=== PATIENT | male | born 1960 ===

== ENCOUNTER 2018-01-12 07:00 | Inpatient (IN) | payer OTHER ==
[~2018-01-12] VITALS: Ht 170.2 cm; Wt 55.3 kg
[2018-01-12] VITALS (8 sets, daily range): BP systolic 107–130; BP diastolic 69–87
[~2018-01-12 07:00] MED LIST: CEFAZOLIN SOD IVPB ONE; NS IVPB ONE
[2018-01-12] MEDS ORDERED: Dexamethasone 20mg/5ml IVP ONE (07:45)
[2018-01-12] MEDS ORDERED: PERCOCET 7.5-31 EACH ORAL (08:04)
[2018-01-12] MEDS ORDERED: ZANTAC150 MG ORAL (08:05)
[2018-01-12] MEDS ORDERED: Propofol 1,000mg/ 100ml btl IV ONE (09:00)
[2018-01-12] MEDS ORDERED: LR 1000ml 1,000 ML IVLG SCH (10:17)
--- NOTE | 2018-01-12 10:17 | Anethesia Preoperative Eval ---
Anesthesia Pre-op PMH/ROS General Date of Evaluation: Jan 12, 2018 Anesthesiologist: Nahomi Mallampati Score Class I : Soft palate, uvula, fauces, pillars visible Class II: Soft palate, uvula, fauces visible Class III: Soft palate, base of uvula visible Class IV: Only hard plate visible Allergies: Coded Allergies: No Known Allergies (Unverified , 01/11/18) Anesthesia Pre-op Phys. Exam Physician Exam Last Vital Signs Date Time Temp Pulse Resp B/P (MAP) Pulse Ox O2 Delivery O2 Flow Rate FiO2 01/12/18 08:31 97.8 73 18 113/78 100 Room Air 97.8 Ike Comer MD Jan 12, 2018 10:16
--- NOTE | 2018-01-12 10:27 | Pre-Procedure Note/Attestation ---
Pre-Procedure Note/Attestation Complete Prior to Procedure Planned Procedure: not applicable Procedure Narrative: ACDF C5-6, C6-7 Anterior Plate SSEP, EMG Osteopromotive material C5-6, C6-7 with allograft High Power Magnification Xray Attestation I attest that I discussed the nature of the procedure; its benefits; risks and complications; and alternatives (and the risks and benefits of such alternatives ), prior to the procedure, with the patient (or the patient's legal account service representative). I attest that, if there was a reasonable possibility of needing a blood transfusion, the patient (or the patient's legal account service representative) was given the [place] [employer] [facility] [employer] [facility] standardized written summary, pursuant to the [facility] [employer] [place] Blood Safety Act ([place] Health and Safety Code # 1645, as amended). I attest that I re-evaluated the patient just prior to the surgery and that there has been no change in the patient's H&P, except as documented below: MARY RAM Jan 12, 2018 10:27
[2018-01-12] MEDS ORDERED: Labetalol 5mg/ml 20ml vial IV PRN (10:30)
[2018-01-12] MEDS ORDERED: Acetaminophen (Non formulary) 100 ML IV ONE (10:30)
[2018-01-12] MEDS ORDERED: fentaNYL 100 mcg/2 mL IV PRN (10:30)
[2018-01-12] MEDS ORDERED: Hydromorphone 0.5mg/0.5ml inj IVP PRN ×2 (10:30→16:30)
[2018-01-12] MEDS ORDERED: LORazepam Inj 2mg/ml 1ml IV PRN (10:30)
[2018-01-12] MEDS ORDERED: Midazolam 2mg/2ml Inj IVP PRN (10:30)
[2018-01-12] MEDS ORDERED: Ketorolac 30mg Inj IV PRN ×2 (10:30)
[2018-01-12] MEDS ORDERED: Metoclopramide 10mg/2ml Inj IVP PRN (10:30)
[2018-01-12] MEDS ORDERED: oxyCODONE HCL/Acetaminophen 5/325mg ORAL PRN (10:30)
[2018-01-12] MEDS ORDERED: Norco 5mg/325mg tab ORAL PRN (10:30)
[2018-01-12] MEDS ORDERED: HYDROcodone/Acetamin 7.5/325 tab ORAL PRN (10:30)
[2018-01-12] MEDS ORDERED: Atropine Inj 1mg/10ml Syr IV PRN (10:30)
[2018-01-12] MEDS ORDERED: DiphenhydrAMINE 50mg/ml Inj IVP PRN (10:30)
[2018-01-12] MEDS ORDERED: Zemuron 50mg/5ml Inj IV ONE (10:37)
[2018-01-12] MEDS ORDERED: Thrombin 5000 units TOPIC ONE (10:42)
[2018-01-12] MEDS ORDERED: Bacitracin 50000 Units Vial ONE (10:43)
[2018-01-12] MEDS ORDERED: Lidocaine 1% Plain 30 ml INJ ONE ×2 (10:47→13:19)
[2018-01-12] MEDS ORDERED: Lidocaine 1% MPF 10mg/ml 5ml ONE (10:49)
[2018-01-12] MEDS ORDERED: Sodium Chloride 10ml vial INJ ONE (10:49)
[2018-01-12] MEDS ORDERED: fentaNYL 100 mcg/2 mL IV ONE ×2 (10:50→12:30)
[2018-01-12] MEDS ORDERED: Neostigmine 1mg/ml 10ml Inj ONE (11:00)
[2018-01-12] MEDS ORDERED: Glycopyrrolate 0.2mg/ml 1ml Vial ONE ×2 (11:00→13:46)
[2018-01-12] MEDS ORDERED: Sterile Water Irrig 1000ml IRRIG ONE (11:00)
[2018-01-12] MEDS ORDERED: NS Irrig 1000ml ONE (11:00)
[2018-01-12] MEDS ORDERED: LR 1000ml ONE (11:00)
--- NOTE | 2018-01-12 11:08 | Anethesia Preoperative Eval ---
Anesthesia Pre-op PMH/ROS General Date of Evaluation: Jan 12, 2018 Time of Evaluation: 11:16 Anesthesiologist: Dandy ASA Score: ASA 2 Mallampati Score Class I : Soft palate, uvula, fauces, pillars visible Class II: Soft palate, uvula, fauces visible Class III: Soft palate, base of uvula visible Class IV: Only hard plate visible Mallampati Classification: Class I Surgeon: Leanna Diagnosis: Neck Pain Surgical Procedure: ACDF C5-6, C6-7 Anesthesia History: none Family History: no anesthesia problems Allergies: Coded Allergies: No Known Allergies (Unverified , 01/11/18) Medications: see eMAR Past Medical History Gastrointestinal/Genitourinary: Reports: GERD Anesthesia Pre-op Phys. Exam Physician Exam Last Vital Signs Date Time Temp Pulse Resp B/P (MAP) Pulse Ox O2 Delivery O2 Flow Rate FiO2 01/12/18 08:31 97.8 73 18 113/78 100 Room Air 97.8 Constitutional: NAD Neurologic: CN 2-12 intact Cardiovascular: RRR Respiratory: CTA Gastrointestinal: S/NT/ND Airway Exam Mallampati Score: Class I MO: full ROM: limited Teeth: missing, intact Dentures: upper Anesthesia Pre-op A/P Risk Assessment & Plan Assessment: ASA 2 Plan: GA, BIS, GlideScope Go Status Change Before Surgery: No Pre-Antibiotics Dru Grams Ancef IV Given Within 1 Hr of Incision: Yes Time Given: 11:41 Ike Comer MD Jan 12, 2018 11:08
--- NOTE | 2018-01-12 11:09 | Immediate Post-Op Evaluation ---
Immediate Post-Op Evalulation Immediate Post-Op Evalulation Procedure: ACDF C5-6, C6-7 Date of Evaluation: Jan 12, 2018 Time of Evaluation: 14:29 IV Fluids: 800 LR Blood Products: 0 Estimated Blood Loss: 25 Urinary Output: 0 Blood Pressure Systolic: 130 Blood Pressure Diastolic: 87 Pulse Rate: 80 Respiratory Rate: 16 O2 Sat by Pulse Oximetry: 100 Temperature (Fahrenheit): 97.3 Pain Score (1-10): 3 Nausea: No Vomiting: No Complications 0 Patient Status: awake, reacts, patent, extubated, none Hydration Status: adequate Dru Grams Ancef IV Given Within 1 Hr of Incision: Yes Time Given: 11:41 Ike Comer MD Jan 12, 2018 11:09
--- NOTE | 2018-01-12 12:02 | Diagnostic Imaging Report ---
Indication: Cough Technique: One view of the chest Comparison: none Findings: Lungs and pleural spaces are clear. The heart size is normal Impression: Negative
--- NOTE | 2018-01-12 14:07 | Brief Operative Note ---
Immediate Post Operative Note Operative Note Chief Complaint: Neck pain radiculopathy Pre-op Diagnosis: post trauma neck pain radiculopathy Procedure: C5-6, C6-7 ACDF, Interbody graft, osteopromotive material fusion with autograft , xray, SSEP EMG, Anterior plate fixation, correction deformity Spinal cord / nerve root decompression Post-op Diagnosis: same as pre-op Findings: consistent w/pre-op dx studies Surgeon: Leanna MAS Yoke Presser: Mimi BENSON Anesthesiologist: Nahomi MAS Anesthesia: general Specimen: yes Complications: none Condition: stable Fluids: anesthesia Estimated Blood Loss: minimal Drains: none Implant(s) used?: Yes MARY RAM Jan 12, 2018 14:07
--- NOTE | 2018-01-12 14:32 | Diagnostic Imaging Report ---
Indication: Pain, intraoperative, pain in neck and bilateral upper extremities left upper extremity greater than right upper extremity Total fluoroscopy time 12.7 second. Total dose area product 1.8 dGycm2 Technique: Intraoperative images Comparison: none Findings: Intraoperative images demonstrate surgical tool projected level of the C5-6 disc. Subsequent images document anterior fusion of C5 through C7 with disc spacers at C5-6 and C6-7 Impression: Intraoperative imaging, as described
[2018-01-12] MEDS ORDERED: oxyCODONE 5mg IR tab ORAL PRN (16:30)
[2018-01-12] MEDS ORDERED: Chloraseptic Spray 20mL Bottle ORAL ONE (17:00)
[2018-01-12] MEDS ORDERED: Chloraseptic Spray 20mL Bottle ORAL PRN (17:30)
--- NOTE | 2018-01-12 18:00 | Operative Note - Dictated ---
DATE OF OPERATION: 01/12/2018 ADMITTING/PREOPERATIVE DIAGNOSIS: Posttraumatic cervical neck pain with radiculopathy. POSTOPERATIVE DIAGNOSIS: Posttraumatic cervical neck pain with radiculopathy. SURGEON: Rancho Ram, PhD., M.D. RECRUITING MANAGER: KELLEY Levine. ANESTHESIA: General with intubation, Dr. Dorman. BLOOD LOSS: Minimal. OPERATIVE PROCEDURE: ACDF C5-C6, C6-C7. Anterior internal fixation C5, C6 and C7. Fusion with osteopromotive material in combination with autograft C5-C6, C6-C7. Correction deformity, spinal cord decompression, nerve root decompression, high-powered microscopic dissection, SSEP/EMG, and intraoperative x-rays interpreted by surgeon. DESCRIPTION OF PROCEDURE: The patient was brought to the operating room and in the supine position, general anesthesia intubation was induced. IV antibiotics, IV Decadron administered prior to incision time. After appropriate position, a cross-table radiograph obtained under sterile conditions demonstrating the correct level for incision placement. Neck was marked. Neck was sterilely prepped and draped free in usual sterile fashion. Transverse left incision at the appropriate interval was sharply placed through dermis and epidermis. Electrocautery dissection was carried through subcutaneous tissue to the level of the platysmas muscle that was identified, isolated and transected in line with the incision. Blunt dissection was carried medial to the left sternocleidomastoid muscle and medial to the carotid sheath through the deep cervical pretracheal fascia to the midline between the right and left longus colli muscles. Large anterior osteophytes identified. A spinal needle that was bent at 90-degree angle so as to avoid penetration into the space greater than 3 mm was placed in the disc space under direct observation, sterile conditions and a cross-table image was obtained under sterile conditions demonstrating the correct level for the dissection. Level was marked. Needle removed. Longus colli muscles elevated to maximum 3 mm subperiosteally from the medial lateral extent. C6-C7: Large anterior osteophyte after retractor placement was resected with Midas James bur dissection, high-power magnification. Diskectomy was performed with essentially intermittent bone on bone. Decompression was undertaken to the posterior longitudinal ligament. Interpositional grafting with a lordotic titanium cage containing Bio-4 with autograft was tamped into position. Excellent alignment and positioning. Confirmed with fluoroscopy. Retractors were placed at the C5-C6 interval. C5-C6: Large anterior osteophyte was resected under high-power magnification with Midas James bur dissection. Bleeding bone was cauterized with application of sterile wax. Diskectomy was performed to the posterior longitudinal ligament. Posterior longitudinal ligament resected with decompression of spinal cord and nerve roots. No dural tears or leaks occurred anytime during the procedure. SSEP monitoring and EMG's remained stable at all times. Interpositional grafting with the appropriate lordotic titanium graft containing autograft bone and bile-4 osteopromotive material was tamped into position. Excellent alignment. All traction on the neck (10 pounds) was removed. Anterior internal fixation in compressive fashion was undertaken C5-C6-C7. Purchase excellent. Screws locked into position. Fluoroscopic imaging, excellent alignment and positioning. Wound was irrigated with antibiotic-containing saline. Expiration revealed no obvious excoriation or laceration of vital structures. FloSeal applied. Reapproximation of the platysmas muscle. With a running subcuticular suture of the dermis and epidermis follows transverse surgical strips and sterile bandage. It was maintained in place with tape. The patient was awakened and extubated in the operating room, and transported to postoperative recovery in good stable condition. Rancho Ram M.D. DR: SUKHWINDER JOB#: [id number] CC:
[2018-01-12] MEDS: D5 1/2NS 1,000 ML IV SCH (18:12)
[2018-01-12] MEDS: ceFAZolin sod 1 GM in D5W 110 ML IV SCH (18:30)
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
[2018-01-12] MEDS: Hydromorphone 0.5mg/0.5ml inj SUBQ PRN (23:43)
[2018-01-13 00:28] VITALS: BP 113/65
[2018-01-13] MEDS ORDERED: Hydromorphone 0.5mg/0.5ml inj IVP PRN (00:30)
[2018-01-13] MEDS ORDERED: Hydromorphone 0.5mg/0.5ml inj SUBQ PRN (00:30)
[2018-01-13] MEDS ORDERED: oxyCODONE 5mg IR tab ORAL PRN (01:30)
[2018-01-13] MEDS: ceFAZolin sod 1 GM in D5W 110 ML IV SCH ×2 (03:03→11:52)
[2018-01-13] MEDS: D5 1/2NS 1,000 ML IV SCH (03:03)
[2018-01-13 04:14] VITALS: BP 111/67
[2018-01-13 08:00] VITALS: BP 104/66
[2018-01-13] MEDS: Hydromorphone 0.5mg/0.5ml inj SUBQ PRN (09:27)
--- NOTE | 2018-01-13 10:36 | 48 Hour Post Anesthesia Eval ---
Post Anesthesia Evaluation Procedure: ACDF C5-6, C6-7 Date of Evaluation: Jan 13, 2018 Time of Evaluation: 08:00 Blood Pressure Systolic: 104 0: 66 Pulse Rate: 75 Respiratory Rate: 20 Temperature (Fahrenheit): 98.5 O2 Sat by Pulse Oximetry: 98 Airway: patent Nausea: No Vomiting: No Pain Intensity: 0 Mental Status/LOC: patient returned to baseline Post-Anesthesia Complications: none Follow-up care needed: N/A Vera Ziegler M.D. Jan 13, 2018 10:36
[2018-01-13 12:00] VITALS: BP 116/68
[2018-01-13] MEDS ORDERED: D5 1/2NS 1000ml IV ONE (13:29)
--- NOTE | 2018-01-13 18:15 | Progress Note ---
DATE: 01/13/2018 ACUTE PAIN MANAGEMENT PHYSICIAN PROGRESS NOTE MEDICATIONS: Medication administration record reviewed. Medications include Chloraseptic spray, Protonix, oxycodone, Zofran, Dilaudid, Benadryl, Catapres, Soma, and Mylanta. OBJECTIVE: VITAL SIGNS: Within normal limits. Afebrile, pulse 60, respirations 18, blood pressure 111/67, and oxygen saturation 97% on room air. LABORATORY STUDIES: No interval laboratory studies. I spent over 60 minutes in consultation today. I saw the patient at the bedside with the nurse RN, Timur. I also spoke with the physical therapist, Avery. The patient needed to stay overnight due to pain complaints in the late hour of completion from his surgery. I spoke with the overnight nurse RN, Jones and we serially dosed the patient with oxycodone and subcutaneous Dilaudid to moderate his pain complaints. Lower doses of oxycodone and Dilaudid were inadequate, so I doubled both doses. The increased doses seems to have better efficacy without oversedation. This morning, the patient has been able to move in and out of bed to the restroom and we will continue training with physical therapy prior to the arrival of his to take him home later. He already has a supply of oxycodone at home and I will continue using the subcutaneous Dilaudid to encourage and enable frequent ambulation. The patient is swallowing, breathing, and phonating well after his neck surgery. The neck dressing appears clean and dry. I told the patient to avoid wetting the dressing or wound and avoid showering until he discusses with Dr. Ram and/or his office staff for further instructions. The patient already has a prescription for oxycodone for home usage. The patient is alert and oriented x3. He is neurologically grossly intact. He denies any shortness of breath or chest pain. The Chloraseptic spray has been helpful for topical relief and he will take this medication for home usage in addition with the incentive spirometer to help with good pulmonary toilet. At this point, I agree with the surgeon, Dr. Ram, for discharge trial home. The patient has been able to tolerate oral intake without any nausea symptoms. He has normal vital signs and is afebrile. Philip Rojo M.D. DR: ESTEFANY JOB#: [id number] CC:
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
== END 2018-01-13 13:30 | disposition home or self-care (01) | DRG 30 ==
LOC: SDSOVERFLO 07:44 → EDSEX 09:00 → 3E 15:24
DX: M54.12 Radiculopathy, cervical region (principal); G89.18 Other acute postprocedural pain; M54.2 Cervicalgia
CPT/HCPCS: 36415; 71045; 72040; 76001; 86850; 86900; 86901; 87081; 94003; 94150; J2405; J2710